=== PATIENT | female | born 1955 | race Caucasian/White ===

== ENCOUNTER 2020-02-09 10:27 | Emergency (ER) | payer OTHER ==
[2020-02-10 11:42] LABS: SARS-CoV-2 MS2 Positive; SARS-CoV-2 N Gene Negative; SARS-CoV-2 S Gene Negative; SARS-CoV-2 by NAA Not Detected (NotDetected); SARS-CoV-2 orf1ab Negative
== END 2020-02-09 10:46 | disposition home or self-care (01) ==
LOC: ERS 10:27
DX: Z20.828 Contact with and (suspected) exposure to other viral communicable diseases (principal); E03.9 Hypothyroidism, unspecified; G47.30 Sleep apnea, unspecified
CPT/HCPCS: 87635; 99283; U0003